=== PATIENT | female | born 1995 | race African-American/Black ===

== ENCOUNTER 2022-07-13 08:21 | Emergency (ER) | payer MEDICAID ==
[~2022-07-13] VITALS: Ht 157.5 cm; Wt 82.0 kg
[2022-07-13 08:31] VITALS: BP 161/91
[2022-07-13] MEDS ORDERED: ONDANSETRON 4MG ODT PO STA (09:16)
[2022-07-13] MEDS ORDERED: ACETAMINOPHEN 325MG TABLET PO STA (09:41)
[2022-07-13 10:14] LABS: BASOPHILS % 0.7 % (0.0-2.0); EOSINOPHILS % 2.4 % (0.0-5.0); HEMATOCRIT. 41.5 % (36.0-48.0); HEMOGLOBIN. 14.1 g/dL (12.0-16.0); LYMPHOCYTES % 16.9 % (20.0-50.0); MEAN CORPUSCULAR HEMOGLOBIN 29.7 pg (28.0-32.0); MEAN CORPUSCULAR VOLUME 87.4 fL (81.0-99.0); MEAN PLATELET VOLUME 7.9 fl (7.4-10.4); MONOCYTES % 8.7 % (2.0-8.0); NEUTROPHILS % 71.3 % (40.0-76.0); PLATELET 347 x1000/uL (130-400); RED BLOOD CELL COUNT 4.75 mill/uL (4.2-5.4); RED CELL DISTRIBUTION WIDTH 14.2 % (11.6-14.6)
[2022-07-13] MEDS ORDERED: SODIUM CHLORIDE 0.9% 1,000 ML IV ONE (10:15)
[2022-07-13 10:17] LABS: CHLORIDE 105 mEq/L (98-107)
[2022-07-13 13:13] LABS: CLARITY URINE CLEAR (CLEAR); COLOR URINE YELLOW (YELLOW); KETONES URINE 1+ (NEGATIVE); LEUKOCYTE ESTERASE URINE NEGATIVE (NEGATIVE); NITRITE URINE NEGATIVE (NEGATIVE); OCCULT BLOOD URINE NEGATIVE (NEGATIVE); PROTEIN URINE NEGATIVE (NEGATIVE); SPECIFIC GRAVITY URINE 1.013 (1.005-1.030); UROBILINOGEN URINE 0.2 E.U./dL (0.2-1.0)
[2022-07-13 13:18] LABS: HCG SCREEN NEGATIVE
== END 2022-07-13 14:11 | disposition home or self-care (01) ==
LOC: ER 08:21
DX: R07.89 Other chest pain (principal); R19.7 Diarrhea, unspecified
CPT/HCPCS: 36415; 80053; 81003; 81025; 83690; 84703; 85025; 85379; 93005; 96360; 99285; Q0162